=== PATIENT | male | born 1945 | race Caucasian/White ===

== ENCOUNTER 2020-09-21 13:59 | Emergency (ER) | payer OTHER ==
[~2020-09-21] VITALS: Ht 182.9 cm; Wt 68.0 kg
[2020-09-21] MEDS ORDERED: ACET-2154 PO (14:22)
[2020-09-21] MEDS ORDERED: LISI-607 PO (14:22)
--- NOTE | 2020-09-21 14:38 | NUR ---
PT IS IN ROOM #1A. DR PARSONS EVALUATED THE PT.
[2020-09-21 14:49] LABS: BASOPHILS # (AUTO) 0.1 K/uL (0.0-8.0); BASOPHILS % (AUTO) 0.9 % (0.0-2.0); EOSINOPHILS % (AUTO) 0.6 % (0.0-7.0); HEMATOCRIT 45.8 % (36.7-47.1); HEMOGLOBIN 15.1 g/dL (12.5-16.3); LYMPHOCYTES # (AUTO) 0.8 K/uL (20.0-40.0); LYMPHOCYTES % (AUTO) 13.2 % (20.5-51.5); MEAN CORPUSCULAR HEMOGLOBIN 32.3 uug (23.8-33.4); MEAN CORPUSCULAR HGB CONC 33 g/dL (32.5-36.3); MEAN CORPUSCULAR VOLUME 97.8 fL (73.0-96.2); MONOCYTES # (AUTO) 0.4 K/uL (2.0-10.0); MONOCYTES % (AUTO) 7.5 % (0.0-11.0); NEUTROPHILS # (AUTO) 4.6 K/uL (1.8-8.9); NEUTROPHILS % (AUTO) 77.8 % (38.5-71.5); PLATELET COUNT (AUTO) 212 K/uL (152-348); RED BLOOD CELL COUNT(AUTO) 4.68 MIL/uL (4.06-5.63); WHITE BLOOD COUNT (AUTO) 5.9 K/uL (3.6-10.2)
[2020-09-21 15:01] LABS: BILIRUBIN,DIRECT 0.1 mg/dL (0.0-0.2); BILIRUBIN,TOTAL 0.5 mg/dL (0.2-1.0); POTASSIUM 4.6 mmol/L (3.5-5.1); TOTAL PROTEIN, SERUM 6.8 g/dL (6.4-8.2)
--- NOTE | 2020-09-21 18:00 | NUR ---
Pt was d/c'd to home. D/C instructions given to the pt by dr Cast.
[2020-09-21 18:02] VITALS: BP 129/77
== END 2020-09-21 18:03 | disposition home or self-care (01) ==
LOC: EDBD 13:59 → ER 13:59
DX: Z04.3 Encounter for examination and observation following other accident (principal); G43.909 Migraine, unspecified, not intractable, without status migrainosus; G89.29 Other chronic pain; Z79.899 Other long term (current) drug therapy
CPT/HCPCS: 36415; 70030-TC; 71045; 85025; 85730; 93005; A4663

== ENCOUNTER 2022-09-01 13:06 | Emergency (ER) | payer OTHER ==
[~2022-09-01] VITALS: Ht 182.9 cm; Wt 77.1 kg
[~2022-09-01 13:06] MED LIST: ACET-2154 PO; LISI-782 PO
[2022-09-01] MEDS ORDERED: ACETAMINOPHEN 325 MG TABLET PO ONE (13:30)
[2022-09-01] MEDS ORDERED: IV NORMAL SALINE 1000 ML BAG IV ONE (13:30)
[2022-09-01] MEDS ORDERED: ROSU10TA2 PO (13:35)
[2022-09-01 13:44] LABS: HEMATOCRIT 37.5 % (36.7-47.1); MEAN CORPUSCULAR HEMOGLOBIN 32.9 uug (23.8-33.4); PLATELET COUNT (AUTO) 211 K/uL (152-348)
[2022-09-01] MEDS ORDERED: ACETAMINOPHEN ES 500 MG TABLET ONE (13:44)
[2022-09-01 13:52] LABS: CARBON DIOXIDE 29 mmol/L (21-32); CHLORIDE 104 mmol/L (98-107); CREATININE 1.3 mg/dL (0.6-1.3); GLUCOSE 134 mg/dL (74-106); POTASSIUM 3.9 mmol/L (3.5-5.1); UREA NITROGEN, BLOOD 15 mg/dL (7-18)
[2022-09-01 14:01] LABS: ALANINE AMINOTRANSFERASE 20 U/L (16-63); ALKALINE PHOSPHATASE 78 U/L (50-136); ASPARTATE AMINOTRANSFERASE 24 U/L (15-37); BILIRUBIN,DIRECT 0.1 mg/dL (0.0-0.2); BILIRUBIN,TOTAL 0.4 mg/dL (0.2-1.0); TOTAL PROTEIN, SERUM 6.6 g/dL (6.4-8.2)
[2022-09-01 14:25] LABS: NEUTROPHILS % (MANUAL) 0 % (42-75)
[2022-09-01] MEDS ORDERED: BACITRACIN ZINC OINT 15 GM TUBE ONE ×2 (14:54→15:32)
[2022-09-01] MEDS ORDERED: BACITRACIN ZINC OINT 15 GM TUBE TOP ONE (15:00)
[2022-09-01] MEDS ORDERED: TDAP DIPH,PERTUSS,TET VAC/PF 0.5 ML DISP.SYRIN IM ONE ×2 (15:00→15:32)
--- NOTE | 2022-09-01 15:30 | NUR ---
Pt resting in gurney with NAD noted. BP 134/68, HR 80, RR 18, Pulse ox 96%.
[2022-09-01 16:00] LABS: *BILIRUBIN,URIN NEGATIVE (NEGATIVE); *BLOOD, URINE 2+ (NEGATIVE); *CLARITY,URINE CLEAR (CLEAR); *COLOR,URINE YELLOW (YELLOW); *KETONES,URINE NEGATIVE (NEGATIVE); *UROBILINOGEN,URINE 0.2 E.U./dl (NORMAL); LEUKOCYTE ESTERASE ,URINE NEGATIVE (NEGATIVE); NITRITE, URINE NEGATIVE (NEGATIVE); PH,URINE 5.5 (5.0-8.0); UGLUCOSE NEGATIVE (NEGATIVE)
--- NOTE | 2022-09-01 16:35 | NUR ---
Spoke with Madeline PAINTING, requested information provided via telephone. Per [facility] they will assign a doctor to the case and they will call back to speak with the ER physician.
[2022-09-01] MEDS ORDERED: AZITHROMYCIN IV 500 MG in IV DEXTROSE 5% 250 ML IV SCH (16:45)
[2022-09-01] MEDS ORDERED: CEFTRIAXONE 1 G in IV DEXTROSE 5% 50 ML IV SCH (16:45)
[2022-09-01] MEDS ORDERED: CEFTRIAXONE /D5W 50ML IVPB **ER PYXIS IV ONE (17:23)
[2022-09-01] MEDS ORDERED: AZITHROMYCIN 500MG/ D5W 250ML IVPB **ER PYXIS ONLY IV ONE (17:24)
--- NOTE | 2022-09-01 18:30 | NUR ---
Pt called, with pt's verbal consent condition and plan of care discussed with via telephone. Pt resting with no acute distress noted at this time. Pending transfer to [place].
--- NOTE | 2022-09-01 18:40 | NUR ---
: Peri Enriquez, cell phone [phone].
--- NOTE | 2022-09-01 19:05 | NUR ---
Received report from LLUVIA Alba.
[2022-09-01 20:26] LABS: BACTERIA,URINE RARE /HPF (NONE SEEN); RBC,URINE 20-50 /HPF (0-3); SQUAMOUS EPITHELIAL CELL,UR FEW /HPF (NONE SEEN); WBC,URINE 0-3 /HPF (0-3)
--- NOTE | 2022-09-01 22:45 | NUR ---
Spoke with [facility], patient will be transfered to [facility] [place] under the care of [facility] ([id number]), Dr. Delbert taylor the physician.
--- NOTE | 2022-09-01 23:05 | NUR ---
Report given to LLUVIA López from [facility].
[2022-09-01] MEDS ORDERED: DEXAMETHASONE SOD PHOSPHATE 4 MG INJ IV ONE (23:15)
[2022-09-01] MEDS ORDERED: DEXAMETHASONE SOD PHOSPHATE 4 MG INJ ONE (23:21)
--- NOTE | 2022-09-01 23:35 | NUR ---
All [facility] has arrive and report was given.
--- NOTE | 2022-09-02 | NUR ---
Patient has left ER in stable condition with [facility].
== END 2022-09-02 | disposition short-term general hospital (02) ==
LOC: ER 13:06
DX: U07.1 COVID-19 (principal); J12.82 Pneumonia due to coronavirus disease 2019; G62.9 Polyneuropathy, unspecified; M48.02 Spinal stenosis, cervical region; Z86.73 Personal history of transient ischemic attack (TIA), and cerebral infarction without residual deficits; E78.5 Hyperlipidemia, unspecified; G89.29 Other chronic pain; S41.112A Laceration without foreign body of left upper arm, initial encounter; S00.83XA Contusion of other part of head, initial encounter; W01.0XXA Fall on same level from slipping, tripping and stumbling without subsequent striking against object, initial encounter; Y93.89 Activity, other specified; Y92.830 Public park as the place of occurrence of the external cause; M19.90 Unspecified osteoarthritis, unspecified site; R73.9 Hyperglycemia, unspecified; R94.31 Abnormal electrocardiogram [ECG] [EKG]; Z79.899 Other long term (current) drug therapy
CPT/HCPCS: 99285; 70450; 96365; 71045; 96367; 96361; 96375; 87426; 80076; 80048; 81001; 85025; 84145; 85730; 87400; 87040 ×3; 84484 ×2; 36415; 93005 ×2; 70486; 72125; 90715; 90471; 83605 ×2; 85007; J0456; J0696; J1100; J7040; 70030-TC; A4663; A9150

== ENCOUNTER 2022-10-07 16:05 | Emergency (ER) | payer OTHER ==
[~2022-10-07] VITALS: Ht 182.9 cm; Wt 77.1 kg
[~2022-10-07 16:05] MED LIST changes: +ROSU10TA2 PO
--- NOTE | 2022-10-07 16:12 | NUR ---
PT IS IN ROOM #2B. DR CARTER EVALUATED THE PT.
[2022-10-07] MEDS ORDERED: IV NORMAL SALINE 500 ML BAG IV ONE (16:30)
[2022-10-07 17:07] LABS: *BILIRUBIN,URIN NEGATIVE (NEGATIVE); *BLOOD, URINE 3+ (NEGATIVE); *CLARITY,URINE CLOUDY (CLEAR); *COLOR,URINE YELLOW (YELLOW); *KETONES,URINE TRACE (NEGATIVE); LEUKOCYTE ESTERASE ,URINE 2+ (NEGATIVE); NITRITE, URINE NEGATIVE (NEGATIVE); PH,URINE 5.5 (5.0-8.0); UGLUCOSE NEGATIVE (NEGATIVE)
[2022-10-07 17:18] LABS: HEMATOCRIT 39.6 % (36.7-47.1); MEAN CORPUSCULAR HEMOGLOBIN 31.9 uug (23.8-33.4); MEAN CORPUSCULAR VOLUME 96.8 fL (73.0-96.2); PLATELET COUNT (AUTO) 220 K/uL (152-348)
[2022-10-07 17:29] LABS: CARBON DIOXIDE 27 mmol/L (21-32); CHLORIDE 104 mmol/L (98-107); CREATININE 1.2 mg/dL (0.6-1.3); GLUCOSE 102 mg/dL (74-106); UREA NITROGEN, BLOOD 17 mg/dL (7-18)
[2022-10-07 17:34] LABS: RBC,URINE 80-100 /HPF (0-3); WBC,URINE 50-80 /HPF (0-3)
[2022-10-07 17:35] LABS: BACTERIA,URINE MANY /HPF (NONE SEEN); SQUAMOUS EPITHELIAL CELL,UR FEW /HPF (NONE SEEN)
[2022-10-07 17:35] LABS: ALANINE AMINOTRANSFERASE 11 U/L (16-63); ALKALINE PHOSPHATASE 109 U/L (50-136); ASPARTATE AMINOTRANSFERASE 15 U/L (15-37); BILIRUBIN,DIRECT 0.3 mg/dL (0.0-0.2); BILIRUBIN,TOTAL 0.8 mg/dL (0.2-1.0); TOTAL PROTEIN, SERUM 6.6 g/dL (6.4-8.2)
[2022-10-07] MEDS ORDERED: CEFTRIAXONE /D5W 50ML IVPB **ER PYXIS IV ONE (17:41)
[2022-10-07] MEDS ORDERED: CEFTRIAXONE 1 G in IV DEXTROSE 5% 50 ML IV ONE (17:45)
[2022-10-07] MEDS ORDERED: CEPH500C2 PO (18:04)
--- NOTE | 2022-10-07 18:19 | NUR ---
[facility] WAS CALLED TO TRANSFER PT TO HIS [facility]. ETA IS 60 MINUTES.
--- NOTE | 2022-10-07 19:22 | NUR ---
[facility] picked up patient with personal belongings and discharge instructions. Patient in stable conditions, no signs of distress.
--- NOTE | 2022-10-07 19:32 | NUR ---
Patient discharged to home in stable condition via [facility]. Written and verbal after care instructions given. Patient verbalizes understanding of instructions. Stressed follow up or return to ER for worsening s/s.
[2022-10-07 19:33] VITALS: BP 169/102
== END 2022-10-07 19:33 | disposition home or self-care (01) ==
LOC: ER 16:05
DX: R55 Syncope and collapse (principal); N39.0 Urinary tract infection, site not specified; Z20.822 Contact with and (suspected) exposure to COVID-19; Z87.01 Personal history of pneumonia (recurrent); G89.29 Other chronic pain; E78.5 Hyperlipidemia, unspecified; Z86.16 Personal history of COVID-19; Z86.73 Personal history of transient ischemic attack (TIA), and cerebral infarction without residual deficits; R94.31 Abnormal electrocardiogram [ECG] [EKG]
CPT/HCPCS: 99285; 96365; 71045; 96361; 87426; 80076; 80048; 81001; 85025; 84484; 36415; 93005; J0696; J7040; A4663

== ENCOUNTER 2023-07-15 21:22 | Emergency (ER) | payer OTHER ==
[~2023-07-15] VITALS: Ht 182.9 cm; Wt 77.1 kg
[~2023-07-15 21:22] MED LIST changes: +CEPH500C2 PO
[2023-07-15] MEDS ORDERED: IV NORMAL SALINE 1000 ML BAG IV ONE (21:30)
[2023-07-15 22:14] LABS: BASOPHILS # (AUTO) 0.1 K/UL (0.0-0.2); BASOPHILS % (AUTO) 0.4 % (0.0-2.0); HEMATOCRIT 40.4 % (36.7-47.1); HEMOGLOBIN 13.5 g/dL (12.5-16.3); LYMPHOCYTES # (AUTO) 0.3 K/uL (0.8-4.8); LYMPHOCYTES % (AUTO) 1.6 % (20.5-51.5); MEAN CORPUSCULAR HEMOGLOBIN 32.4 uug (23.8-33.4); MEAN CORPUSCULAR HGB CONC 34 g/dL (32.5-36.3); MEAN CORPUSCULAR VOLUME 96.8 fL (73.0-96.2); MONOCYTES # (AUTO) 1.1 K/uL (0.1-1.30); MONOCYTES % (AUTO) 6.1 % (0.0-11.0); NEUTROPHILS # (AUTO) 17.2 K/uL (1.8-8.9); NEUTROPHILS % (AUTO) 91.9 % (38.5-71.5); PLATELET COUNT (AUTO) 211 K/uL (152-348); RED BLOOD CELL COUNT(AUTO) 4.17 MIL/uL (4.06-5.63); RED CELL DISTRIBUTION WIDTH 12.9 % (12.1-16.2); WHITE BLOOD COUNT (AUTO) 18.7 K/uL (3.6-10.2)
[2023-07-15 22:22] LABS: ALANINE AMINOTRANSFERASE 16 U/L (16-63); ALBUMIN 3.3 g/dL (3.4-5.0); ALKALINE PHOSPHATASE 79 U/L (50-136); ASPARTATE AMINOTRANSFERASE 24 U/L (15-37); BILIRUBIN,DIRECT 0.3 mg/dL (0.0-0.2); CALCIUM 8.6 mg/dL (8.5-10.1); CARBON DIOXIDE 25 mmol/L (21-32); CHLORIDE 105 mmol/L (98-107); CREATININE 1.8 mg/dL (0.6-1.3); GLUCOSE 115 mg/dL (74-106); POTASSIUM 4.5 mmol/L (3.5-5.1); SODIUM SERUM 140 mmol/L (136-145); TOTAL PROTEIN, SERUM 6.9 g/dL (6.4-8.2); UREA NITROGEN, BLOOD 18 mg/dL (7-18)
[2023-07-15 22:32] LABS: LACTIC ACID 3.1 mmol/L (0.4-2.0)
[2023-07-15 22:43] LABS: AMMONIA 11 umol/L (11-32)
[2023-07-15] MEDS ORDERED: CEFTRIAXONE 1 G in IV DEXTROSE 5% 50 ML IV ONE (22:45)
[2023-07-15] MEDS ORDERED: CYANOCOBALAMIN 1000 MCG/ML VIAL IM ONE (23:00)
[2023-07-15] MEDS ORDERED: IV NS 1000 ML 1,000 ML IV ONE (23:00)
[2023-07-15] MEDS ORDERED: CYANOCOBALAMIN 1000 MCG/ML VIAL ONE (23:06)
[2023-07-15] MEDS ORDERED: CEFAZOLIN 1 G VIAL ONE (23:21)
[2023-07-15 23:31] LABS: *BILIRUBIN,URIN NEGATIVE (NEGATIVE); *BLOOD, URINE 3+ (NEGATIVE); *COLOR,URINE YELLOW (YELLOW); *KETONES,URINE NEGATIVE (NEGATIVE); *PROTEIN,URINE 2+ (NEGATIVE); *UROBILINOGEN,URINE 0.2 E.U./dl (NORMAL); LEUKOCYTE ESTERASE ,URINE TRACE (NEGATIVE); NITRITE, URINE POSITIVE (NEGATIVE); PH,URINE 5.5 (5.0-8.0); UGLUCOSE NEGATIVE (NEGATIVE)
[2023-07-16 00:21] LABS: *CLARITY,URINE CLOUDY (CLEAR)
[2023-07-16 00:35] LABS: BACTERIA,URINE MANY /HPF (NONE SEEN); RBC,URINE TNTC /HPF (0-3)
[2023-07-16 00:36] LABS: SQUAMOUS EPITHELIAL CELL,UR FEW /HPF (NONE SEEN)
[2023-07-16] MEDS ORDERED: IV NS 1000 ML 1,000 ML IV ONE (01:30)
[2023-07-16 05:00] VITALS: O2SAT 95
== END 2023-07-16 05:50 | disposition short-term general hospital (02) ==
LOC: ER 21:24
DX: S92.325A Nondisplaced fracture of second metatarsal bone, left foot, initial encounter for closed fracture (principal); S92.335A Nondisplaced fracture of third metatarsal bone, left foot, initial encounter for closed fracture; R41.82 Altered mental status, unspecified; N39.0 Urinary tract infection, site not specified; J32.0 Chronic maxillary sinusitis; E87.20 Acidosis, unspecified; E53.8 Deficiency of other specified B group vitamins; G43.909 Migraine, unspecified, not intractable, without status migrainosus; E78.5 Hyperlipidemia, unspecified; Z79.899 Other long term (current) drug therapy; Z20.822 Contact with and (suspected) exposure to COVID-19; W18.39XA Other fall on same level, initial encounter; Y93.89 Activity, other specified; Y92.89 Other specified places as the place of occurrence of the external cause; Y99.8 Other external cause status
CPT/HCPCS: 99285; 96365; 70450; 71045; 96361 ×2; 80076; 80048; 81001; 82140; 82607; 85025; 85651; 85730; 87040; 84484; 36415 ×2; 93005; 83605 ×3; 87086; 96372; 87426; 73630; J0690; J3420; J7040 ×4; A4606; A4663; A6213; C1758